=== PATIENT | female | born 1975 | race Caucasian/White ===

== ENCOUNTER 2023-09-02 16:59 | Emergency (ER) | payer BC, SELFPAY ==
[2023-09-02 17:04] VITALS: BP 135/94
[2023-09-02 17:30] LABS: Urine Albumin Trace (Neg - Trace); Urine Bilirubin Negative (Negative); Urine Character Clear (Clear); Urine Color Yellow; Urine Glucose Negative (Negative); Urine Ketone Trace (Negative); Urine Leukocyte Trace (Negative); Urine Nitrite Negative (Negative); Urine Occult Blood 3+ (Negative); Urine Specific Gravity 1.025 (<1.030); Urine Urobilinogen Negative (Neg - 1+)
[2023-09-02 17:31] LABS: % Immature Granulocytes 0.4 % (0-0.5); % Lymphocytes 42.2 % (20.5-51.1); % Monocytes 8.8 % (1.7-9.3); % Neutrophils 43.6 % (42.2-75.2); Absolute Basophils 0.1 10^3/uL (0-0.2); Absolute Eosinophils 0.3 10^3/uL (0-0.7); Absolute Lymphocytes 2.9 10^3/uL (1.2-3.4); Absolute Monocytes 0.6 10^3/uL (0.1-0.6); Hematocrit 39.6 % (37.0-47.0); Hemoglobin 13.6 g/dL (12.0-16.0); Mean Corp Hgb Conc. 34.3 g/dL (33.0-37.0); Mean Corpuscular Hgb 29.8 pg (27.0-31.0); Mean Corpuscular Volume 86.8 fL (81.0-99.0); Mean Platelet Volume 8.5 fL (7.4-10.4); Nucleated Red Blood Cells % 0 %; Platelet Count 332 10^3/uL (130-400); Red Blood Cell Count 4.56 10^6/uL (4.20-5.40); Red Cell Dist. Width 14.1 % (11.5-14.5); White Blood Cell Count 6.9 10^3/uL (4.8-10.8)
[2023-09-02 17:43] LABS: ALT (SGPT) 18 U/L (0-35); AST (SGOT) 23 U/L (14-36); Albumin 4.5 g/dl (3.5-5.0); Alkaline Phosphatase 47 U/L (38-126); Blood Urea Nitrogen 17 mg/dl (7-17); Calcium 10.3 mg/dl (8.4-10.2); Carbon Dioxide 28 mmol/L (22-30); Chloride 98 mmol/L (98-107); Glucose 88 mg/dl (70-99); Sodium 135 mmol/L (135-145); Total Bilirubin 0.5 mg/dl (0.2-1.3); Total Protein 7.1 g/dl (6.3-8.2); eGFR > 60.00
[2023-09-02 17:44] LABS: Urine Calcium Oxalate Crystals Present; Urine Red Blood Cell >100 /HPF (0-2); Urine Squamous Cell >30 /LPF (Few); Urine White Cell 0-2 /HPF (0-5)
[2023-09-02] MEDS: MOTRIN 600 MG PO (18:30)
--- NOTE | 2023-09-02 23:10 | ED.GENMED ---
History of Present Illness
General
Chief Complaint: Flank Pain
Source: patient
Exam Limitations: none
Time Seen by Provider: 09/02/23 18:00
Nursing documentation reviewed up to this point in time: agreed with
Travel History
Have you had any contact with someone who has COVID-19?: No
Do you have any symptoms of coronavirus? Fever > 100 degrees, chills, cough, shortness of breath, sore throat, loss of taste or smell, muscle aches, or headache?: No
History of Present Illness
History of Present Illness:
Patient to ED with complaint of right flank pain. States pain started 1 mos ago and has been intermittent. States pain became much worse last PM. Denies fever/chills, n/v/d. Hx of kidney stones
Past History
Past History
ED Past Medical History: None; Negative Asthma, HTN, Hypercholesterolemia or NIDDM
ED Past Surgical History: None
Social History
Tobacco: Smoker
Alcohol: Occasional
Drug: None
Personal:
Living: with family
Family History
Family History: Other (Coronary artery disease with stents, hypertension, grandmother with diabetes)
Review of Systems
Review of Systems
Allergies reviewed?: Yes
All Other Systems: ROS reviewed and negative except as documented in HPI and ROS
Constitutional: Reports no symptoms
EENT: Reports no symptoms
Respiratory: Reports no symptoms
Cardiac: Reports no symptoms
ABD/GI: Reports no symptoms
: Reports flank pain (right flank pain)
Musculoskeletal: Reports no symptoms
Skin: Reports no symptoms
Neurological: Reports no symptoms
Psychiatric: Reports no symptoms
Phy Exam
General Physical Exam
General Presentation: well appearing and no apparent distress
General age: appears stated age
General Skin: warm and dry
General Habitus: normal
General Mental: alert
Gastrointestinal Exam
Gastrointestinal Exam: normal bowel sounds, non tender, soft and no organomegaly
Musculoskeletal Exam
Musculoskeletal Exam: full ROM and neuro vasc intact
Skin Exam
Skin Exam: normal color, warm/dry and no rash
Psychiatric Exam
Psychiatric Exam: normal mood/affect
Course
Orders/Labs/Results
Orders:
Orders
09/02/23 17:18
CBC/With Diff [Complete Blood Count/With Diff] Urgent
CMP [Comprehensive Metabolic Panel] Urgent
09/02/23 17:19
Urinalysis Reflex To Culture Urgent
Date Specimen was Collected: 09/02/23
Time Specimen was Collected: 17:07
Urine Microscopic Reflex Cult Urgent
09/02/23 18:04
CT Abd/pel Without Iv Or Oral Urgent
Comment:
Reason For Exam: right flank pain
Ketorolac [Toradol] 30 mg IV NOW STA
09/02/23 18:16
Ibuprofen [Motrin] 600 mg .ROUTE .STK-MED ONE
09/02/23 18:28
Ibuprofen [Motrin] 600 mg PO NOW STA
Abnormal Lab Results
09/02/23 09/02/23
17:18 17:19
Calcium 10.3 H mg/dl
(8.4-10.2)
Urine Ketones Trace A
(Negative)
Ur Occult Blood Reflex 3+ A
(Negative)
Leukocyte Esterase Rfl Trace A
(Negative)
Urine RBC >100 A /HPF
(0-2)
09/02/23 17:18
09/02/23 17:18
Vital Signs
Initial and Last Documented VS:
Initial Vital Signs
Temp Pulse Resp BP Pulse Ox
97.7 F 78 18 135/94 100
09/02/23 17:04 09/02/23 17:04 09/02/23 17:04 09/02/23 17:04 09/02/23 17:04
Last Documented Vital Signs
Temp Pulse Resp BP Pulse Ox
97.7 F 78 18 135/94 100
09/02/23 17:04 09/02/23 17:04 09/02/23 17:04 09/02/23 17:04 09/02/23 17:04
*Radiology
Radiology exam reviewed: radiology read reviewed
*Pulse Oximetry
Patient hypoxic: no
*Critical Care Note
Total Time (30-74mins, 75-104mins- exclusive of procedures): Not Applicable
Update Note
Update Note:
Dr. Ny consulted via tiger text regarding patient presentation and US results. He will follow up with patiet in office to schedule ureteroscopy. Discussed US findings and recommendations of with patient. She is agreeable to
plan.
ED Attending Note
-
Portions of this chart may have been created with voice recognition software.� Occasional wrong word or��sound alike� substitutions may have occurred due to the inherent limitations of voice recognition software.
Discharge Plan
Departure
Patient Disposition: Home (Routine Discharge)
Date of Disposition: 09/02/23
Time of Disposition: 19:40
Patient with high blood pressure during this ER visit?: No
Condition: Good
Covid-19: Not Applicable
Discharge Problem:
Renal calculus, right
Instructions: Kidney Stones (DC), Renal Colic (DC)
Prescriptions:
No Action
ibuprofen 200 mg Tablet
400 mg PO Q6H PRN (Reason: pain)
Referrals:
Dayron Ny MD [Active] - Call in 1-3 days for appt (Call in the AM to schedule your appointment.)
Michaela Dawkins PA-C [Family Provider] -
Interventions
Interventions:
*Risk Screen - Suicide Last Done: 09/02/23 17:04
*General Assessment Last Done: 09/02/23 17:04
*Neglect/Abuse Screening Last Done: 09/02/23 17:04
ED- Fall Risk Assessment Last Done: 09/02/23 19:55
*ED COVID-19 Vaccine History Last Done: 09/02/23 17:04
*Nursing Disposition Last Done: 09/02/23 19:55
LV-Bscdeh-Ityhorqqhr Assessment Last Done: 09/02/23 18:39
ED-Female Genitourinary Assessment Last Done: 09/02/23 18:39
Discharge Date and Time
Discharge Date/Time: 09/02/23 19:55
Print Language: SAMI
== END 2023-09-02 19:55 | disposition home or self-care (01) ==
LOC: EMR 16:59
PROVIDERS: EMERGENCY PHYSICIAN Emergency Medicine; FAMILY PHYSICIAN Physician Assistant Medical
DX: N20.0 Calculus of kidney (principal); F17.200 Nicotine dependence, unspecified, uncomplicated; Z87.442 Personal history of urinary calculi
CPT/HCPCS: 99284; 74176; 80053; 81003; 81015; 85025

== ENCOUNTER 2023-09-12 06:24 | Day surgery (SDC) | payer BC, SELFPAY ==
[2023-09-12] VITALS (10 sets, daily range): BP systolic 128–152; BP diastolic 91–104; BMI 25.4
[2023-09-12] MEDS: NORMOSOL-R 1000 IV (08:45)
[2023-09-12] MEDS: Pyridium 200 MG PO (11:35)
[2023-09-12] MEDS: MOTRIN 600 MG PO (11:57)
== END 2023-09-12 12:35 | disposition home or self-care (01) ==
LOC: SDS 06:24
PROVIDERS: ATTENDING PHYSICIAN Specialist
DX: N20.0 Calculus of kidney (principal)
CPT/HCPCS: 52356; 74018; 76000; C1894; C2617

== ENCOUNTER → 2023-12-25 06:49 | Outpatient (REF) | payer BC, SELFPAY | LOC: HWWDC 06:49 | PROVIDERS: ATTENDING PHYSICIAN Obstetrics & Gynecology; FAMILY PHYSICIAN Physician Assistant Medical | DX: Z12.31 Encounter for screening mammogram for malignant neoplasm of breast (principal) | CPT/HCPCS: 77063; 77067 ==

== ENCOUNTER → 2024-12-28 06:42 | Outpatient (REF) | payer BC, SELFPAY | LOC: HWWDC 06:42 | PROVIDERS: ATTENDING PHYSICIAN Obstetrics & Gynecology; FAMILY PHYSICIAN Physician Assistant Medical | DX: Z12.31 Encounter for screening mammogram for malignant neoplasm of breast (principal) | CPT/HCPCS: 77063; 77067 ==

== ENCOUNTER → 2025-03-04 07:31 | Outpatient (REF) | payer BC, SELFPAY | LOC: RCS 07:31 | PROVIDERS: ATTENDING PHYSICIAN Internal Medicine Cardiovascular Disease; FAMILY PHYSICIAN Physician Assistant Medical | DX: R07.89 Other chest pain (principal); E78.00 Pure hypercholesterolemia, unspecified; Z82.49 Family history of ischemic heart disease and other diseases of the circulatory system | CPT/HCPCS: 93017 ==